=== PATIENT | female | born 1990 | race Caucasian/White ===

== ENCOUNTER 2021-07-11 11:13 | Emergency (ER) | payer BC, OTHER ==
[~2021-07-11] VITALS: Ht 167.6 cm; Wt 116.1 kg
[2021-07-11] MEDS ORDERED: SUMATRIPTAN SUC50 MG PO (14:41)
[2021-07-11] MEDS ORDERED: CITALOPRAM HBR10 MG PO (14:41)
[2021-07-11] MEDS ORDERED: IBUPROFEN800 MG PO (14:41)
== END 2021-07-11 16:45 | disposition home or self-care (01) ==
LOC: ED 11:13
DX: U07.1 COVID-19 (principal); Z79.899 Other long term (current) drug therapy
CPT/HCPCS: 71045; 99283

== ENCOUNTER 2025-01-29 12:30 | Emergency (ER) | payer BC, OTHER ==
[~2025-01-29] VITALS: Ht 167.6 cm; Wt 123.6 kg
[~2025-01-29 12:30] MED LIST: CITALOPRAM HBR10 MG PO; IBUPROFEN800 MG PO; SUMATRIPTAN SUC50 MG PO
[2025-01-29] MEDS ORDERED: ESTARYLLA 0.251 EACH PO (12:41)
[2025-01-29] MEDS ORDERED: ALLEGRA ALLERGY60 MG PO (12:42)
[2025-01-29] MEDS ORDERED: NAPROXEN250 MG PO (12:42)
[2025-01-29 13:56] VITALS: BP 150/71
== END 2025-01-29 13:56 | disposition home or self-care (01) ==
LOC: ED 12:30
DX: J06.9 Acute upper respiratory infection, unspecified (principal); Z79.899 Other long term (current) drug therapy
CPT/HCPCS: 71045; 99283-25